=== PATIENT | female | born 1975 | race Caucasian/White ===

== ENCOUNTER 2020-12-29 09:27 | Emergency (ER) | payer BC, SELFPAY ==
--- OUTSIDE RECORDS SUMMARY | 2020-12-29 09:29 | XMS REPORT | Continuity of Care Document ---
:[address] [facility] t Address [address] [place] [address] Dr. Toussaint. [address] [place] [address] Care Team Providers Name Role Phone Unavailable Unavailable Unavailable Payers Payer Name Policy Type Policy Number Effective Date Expiration Date S ource Problems This patient has no known problems. Allergies, Adverse Reactions, Alerts Allergy Allergy Status Severity Reaction(s) Onset Inactive Treating Comm ents Source Name Type Date Date Clinician No Known DA Active [facility] All[facility]ie 01-08 [place] [facility] 00:00: [facility] Medications This patient has no known medications. Procedures This patient has no known procedures. Results This patient has no known results.
--- NOTE | 2020-12-29 13:17 | ER ---
Nurse's Notes [facility] Name: Amy Buchanan Age: 45 yrs Sex: Female : 1975 Arrival Date: 12/29/2020 Time: 09:28 Bed Treatment Private MD: Diagnosis: Migraine without aura, not intractable Presentation: 12/29 10:40 Chief complaint: Patient states: "I just have a massive headache on my left religion". aa5 Symptoms began today at 0800. Pt states "my job is asking for a covid test". Coronavirus screen: headache. Ebola Screen: Patient negative for fever greater than or equal to 101.5 degrees Fahrenheit, and additional compatible Ebola Virus Disease symptoms. Initial Sepsis Screen: Does the patient meet any 2 criteria? No. Patient's initial sepsis screen is negative. Does the patient have a suspected source of infection? No. Patient's initial sepsis screen is negative. Risk Assessment: Do you want to hurt yourself or someone else? Patient reports no desire to harm self or others. Onset of symptoms was December 29, 2020. 10:40 Method Of Arrival: Ambulatory aa5 10:40 Acuity: FERNANDEZ 3 aa5 Triage Assessment: 14:00 Headache History: The patient has had previous headaches and this one is similar to kg previous episodes. General: Appears in no apparent distress. Behavior is calm, cooperative, appropriate for age, quiet. Pain: Pain currently is 5 out of 10 on a pain scale. Pain began Also complains of nausea. Neuro: No deficits noted. 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 Flu vaccine is not up to date. - Social history:: Smoking status: Patient reports the use of cigarette tobacco products, smokes one-half pack cigarettes per day. - Family history:: not pertinent. Screenin:59 Abuse screen: Denies threats or abuse. Denies injuries from another. Nutritional kg screening: No deficits noted. Tuberculosis screening: No symptoms or risk factors identified. Fall Risk None identified. Vital Signs: 10:40 BP 131 / 75; Pulse 84; Resp 18 S; Temp 98.3(O); Pulse Ox 100% on R/A; Weight 81.65 kg aa5 (R); Height 5 ft. 3 in. (160.02 cm) (R); Pain 9/10; 13:30 BP 109 / 64; Pulse 64; Resp 20; Pulse Ox 100% on R/A; kg 10:40 Body Mass Index 31.89 (81.65 kg, 160.02 cm) aa5 [place] Coma Score: 13:11 Eye Response: spontaneous(4). Verbal Response: oriented(5). Motor Response: obeys kashif commands(6). Total: 15. ED Course: 09:28 Patient arrived in ED. as 10:39 Arm band placed on. aa5 10:40 Triage completed. aa5 12:04 Adarsh Varela MD is Attending Physician. kashif 12:21 COVID swab sent to lab. jp3 12:51 Christi Hahn, CARLITOS is Primary Nurse. kg 13:16 Karlo Wallace MD is Referral Physician. kashif 13:59 Patient has correct armband on for positive identification. kg 13:59 No provider procedures requiring assistance completed. Patient did not have IV access kg during this emergency room visit. Administered Medications: 13:02 Drug: Demerol (meperidine) 50 mg Route: IM; Site: left deltoid; kg 13:55 Follow up: Response: No adverse reaction; Marked relief of symptoms; Pain is decreased kg 13:02 Drug: Phenergan (promethazine) 25 mg Route: IM; Site: left deltoid; kg 13:55 Follow up: Response: No adverse reaction; Pain is decreased kg Outcome: 13:17 Discharge ordered by . kashif 13:59 Discharged to home ambulatory. kg 13:59 Condition: improved 13:59 Discharge instructions given to patient, Instructed on discharge instructions, follow up and referral plans. Demonstrated understanding of instructions, follow-up care, medications, Prescriptions given X 1. 14:01 Patient left the ED. kg Signatures: Adarsh Varela MD MD cha Martinez, Amelia as Calderon, Audri, RN RN aa5 Sebastian Yarbrough jp3 Christi Hahn, CARLITOS RN kg
--- NOTE | 2020-12-29 13:17 | EDPHYS ---
Physician Documentation [facility] Name: Amy Buchanan Age: 45 yrs Sex: Female : 1975 Arrival Date: 12/29/2020 Time: 09:28 Bed Treatment Private MD: RAQUEL Physician Adarsh Varela HPI: 12/29 13:08 This 45 yrs old Female presents to ER via Ambulatory with complaints of kashif Headache. 13:08 The patient complains of pain to the top of head, forehead, left frontal area and right kashif frontal area. The patient describes the headache as aching. Onset: The symptoms/episode began/occurred 2 day(s) ago. Associated signs and symptoms: The patient has no apparent associated signs or symptoms. Severity of symptoms: At its worst the pain was mild, in the emergency department the pain is unchanged. Headache History: The patient has had previous headaches and this one is similar to previous episodes. The symptoms are alleviated by nothing. the symptoms are aggravated by nothing. The patient has experienced similar episodes in the past, several times. 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 Flu vaccine is not up to date. - Social history:: Smoking status: Patient reports the use of cigarette tobacco products, smokes one-half pack cigarettes per day. - Family history:: not pertinent. ROS: 13:08 Constitutional: Negative for fever, chills, and weight loss, Eyes: Negative for injury, kashif pain, redness, and discharge, ENT: Negative for injury, pain, and discharge, Neck: Negative for injury, pain, and swelling, Cardiovascular: Negative for chest pain, palpitations, and edema, Respiratory: Negative for shortness of breath, cough, wheezing, and pleuritic chest pain, Abdomen/GI: Negative for abdominal pain, nausea, vomiting, diarrhea, and constipation, Back: Negative for injury and pain, : Negative for injury, bleeding, discharge, and swelling, MS/Extremity: Negative for injury and deformity, Skin: Negative for injury, rash, and discoloration, Psych: Negative for depression, anxiety, suicide ideation, homicidal ideation, and hallucinations, Allergy/Immunology: Negative for hives, rash, and allergies, Endocrine: Negative for neck swelling, polydipsia, polyuria, polyphagia, and marked weight changes, Hematologic/Lymphatic: Negative for swollen nodes, abnormal bleeding, and unusual bruising. 13:08 Neuro: Positive for headache. Exam: 13:08 Constitutional: This is a well developed, well nourished patient who is awake, alert, kashif and in no acute distress. Head/Face: Normocephalic, atraumatic. Eyes: Pupils equal round and reactive to light, extra-ocular motions intact. Lids and lashes normal. Conjunctiva and sclera are non-icteric and not injected. Cornea within normal limits. Periorbital areas with no swelling, redness, or edema. ENT: Nares patent. No nasal discharge, no septal abnormalities noted. Tympanic membranes are normal and external auditory canals are clear. Oropharynx with no redness, swelling, or masses, exudates, or evidence of obstruction, uvula midline. Mucous membranes moist. Neck: Trachea midline, no thyromegaly or masses palpated, and no cervical lymphadenopathy. Supple, full range of motion without nuchal rigidity, or vertebral point tenderness. No Meningismus. Chest/axilla: Normal chest wall appearance and motion. Nontender with no deformity. No lesions are appreciated. Cardiovascular: Regular rate and rhythm with a normal S1 and S2. No gallops, murmurs, or rubs. Normal PMI, no JVD. No pulse deficits. Respiratory: Lungs have equal breath sounds bilaterally, clear to auscultation and percussion. No rales, rhonchi or wheezes noted. No increased work of breathing, no retractions or nasal flaring. Abdomen/GI: Soft, non-tender, with normal bowel sounds. No distension or tympany. No guarding or rebound. No evidence of tenderness throughout. Back: No spinal tenderness. No costovertebral tenderness. Full range of motion. Skin: Warm, dry with normal turgor. Normal color with no rashes, no lesions, and no evidence of cellulitis. MS/ Extremity: Pulses equal, no cyanosis. Neurovascular intact. Full, normal range of motion. Neuro: Awake and alert, GCS 15, oriented to person, place, time, and situation. Cranial nerves II-XII grossly intact. Motor strength 5/5 in all extremities. Sensory grossly intact. Cerebellar exam normal. Normal gait. Psych: Awake, alert, with orientation to person, place and time. Behavior, mood, and affect are within normal limits. Vital Signs: 10:40 BP 131 / 75; Pulse 84; Resp 18 S; Temp 98.3(O); Pulse Ox 100% on R/A; Weight 81.65 kg aa5 (R); Height 5 ft. 3 in. (160.02 cm) (R); Pain 9/10; 13:30 BP 109 / 64; Pulse 64; Resp 20; Pulse Ox 100% on R/A; kg 10:40 Body Mass Index 31.89 (81.65 kg, 160.02 cm) aa5 [place] Coma Score: 13:11 Eye Response: spontaneous(4). Verbal Response: oriented(5). Motor Response: obeys kashif commands(6). Total: 15. MDM: 12:04 Patient medically screened. kashif 13:11 Differential diagnosis: hypertensive headache, temporal arteritis, tension headache. kashif Data reviewed: vital signs, nurses notes. Data interpreted: awake overnight monitor: rate is 84 beats/min, rhythm is regular, Pulse oximetry: on room air is 100 %. Counseling: I had a detailed discussion with the patient and/or guardian regarding: the historical points, exam findings, and any diagnostic results supporting the discharge/admit diagnosis, radiology results. 12/29 13:34 Order name: SARS-COV-2 RT PCR EDMS Administered Medications: 13:02 Drug: Demerol (meperidine) 50 mg Route: IM; Site: left deltoid; kg 13:55 Follow up: Response: No adverse reaction; Marked relief of symptoms; Pain is decreased kg 13:02 Drug: Phenergan (promethazine) 25 mg Route: IM; Site: left deltoid; kg 13:55 Follow up: Response: No adverse reaction; Pain is decreased kg Disposition Summary: 12/29/20 13:17 Discharge Ordered Location: Home kashif Problem: new kashif Symptoms: have improved kashif Condition: Stable kashif Diagnosis - Migraine without aura, not intractable kashif Followup: kashif - With: Private Physician - When: 2 - 3 days - Reason: Recheck today's complaints, Continuance of care, Re-evaluation by your physician Followup: kashif - With: Karlo Wallace MD - When: 2 - 3 days - Reason: Recheck today's complaints, Continuance of care, Re-evaluation by your physician Discharge Instructions: - Discharge Summary Sheet kashif - Migraine Headache kashif - Migraine Headache, [id number] kashif Forms: - Medication Reconciliation Form kashif - Thank You Letter kashif - Antibiotic Education kashif - Prescription Opioid Use kashif Prescriptions: - Ibuprofen 600 mg Oral Tablet - take 1 tablet by ORAL route every 6 hours As needed take with food; 20 tablet; [facility] Refills: 0, Product Selection Permitted Signatures: Dispatcher [employer] EDMS Adarsh Varela MD MD cha Calderon, Audri, RN RN aa5 Christi Hahn RN RN kg Corrections: (The following items were deleted from the chart) 12:41 10:46 CORONAVIRUS+ ordered. EDNY EDMS
[2020-12-29] MEDS ORDERED: MEPERIDINE HCL 50 MG/ML ONE (13:20)
[2020-12-29] MEDS ORDERED: PROMETHAZINE INJ 25 MG/ML AMP ONE (13:20)
[2020-12-29 14:16] VITALS: TEMP 98.3; O2SAT 100
[2020-12-29 14:21] VITALS: BP 109/64
== END 2020-12-29 14:01 | disposition home or self-care (01) ==
LOC: ER 09:27
DX: G43.009 Migraine without aura, not intractable, without status migrainosus (principal); Z20.822 Contact with and (suspected) exposure to COVID-19
CPT/HCPCS: 96372; 99283; J2175; J2550; U0003